=== PATIENT | male | born 1975 | race Caucasian/White ===

== ENCOUNTER 2018-05-25 20:36 | Emergency (ER) | payer SELFPAY ==
[~2018-05-25] VITALS: Ht 177.8 cm; Wt 99.8 kg
[~2018-05-25 20:36] MED LIST: BENADRYL25 M1 PO; IBUPROFEN200 MG PO; THORAZINE25 MG PO; WELLBUTRIN SR150 MG
[2018-05-25 21:00] VITALS: BP 166/98
[2018-05-25] MEDS ORDERED: ACETAMINOPHEN 325 MG TAB PO ONE (21:00)
== END 2018-05-25 21:04 | disposition home or self-care (01) ==
LOC: ER 20:36
DX: R05 Cough (principal); R50.9 Fever, unspecified; J20.9 Acute bronchitis, unspecified; F20.9 Schizophrenia, unspecified; F17.210 Nicotine dependence, cigarettes, uncomplicated
CPT/HCPCS: 93005; 99283

== ENCOUNTER 2018-07-20 16:15 | Emergency (ER) | payer SELFPAY ==
[~2018-07-20] VITALS: Ht 177.8 cm; Wt 99.8 kg
[2018-07-20] MEDS ORDERED: TETANUS/DIPHTHERIA TOX ADULT 0.5 ML SYR IM ONE (16:45)
[2018-07-20] MEDS ORDERED: CLINDAMYCIN PHOS 600 MG/ 4 ML VIAL IM ONE (16:45)
--- NOTE | 2018-07-20 17:25 | Diagnostic Imaging Report ---
LEFT ELBOW X-RAY - 3 VIEWS HISTORY: \S\pain r/o foreign body \[id number] \[id number] \S\Y COMPARISON: None available. FINDINGS: Bones: No acute displaced fracture. Osseous alignment is within normal limits. Joints: The joint spaces are well-maintained. Soft tissues: The soft tissues appear unremarkable. IMPRESSION: No acute radiographic abnormality. No radiopaque foreign bodies overlying the left elbow. Signed by: Dr. Paz Figueroa M.D. on 07/20/2018 5:22 PM
[2018-07-20 18:07] VITALS: BP 142/90
== END 2018-07-20 18:09 | disposition home or self-care (01) ==
LOC: ER 16:15
DX: M25.522 Pain in left elbow (principal); L03.114 Cellulitis of left upper limb; I10 Essential (primary) hypertension; F20.9 Schizophrenia, unspecified; F17.210 Nicotine dependence, cigarettes, uncomplicated
CPT/HCPCS: 90471; 90714; 99283

== ENCOUNTER 2018-09-15 19:04 | Emergency (ER) | payer SELFPAY ==
[~2018-09-15] VITALS: Ht 177.8 cm; Wt 95.3 kg
--- NOTE | 2018-09-15 22:00 | Diagnostic Imaging Report ---
EXAM: HAND 3+ VIEWS RIGHT, AP, lateral and oblique INDICATION: Pain right hand for 2 days, football injury. COMPARISON: None FINDINGS: BONES: There is a 4 mm density at the ventral aspect of the fourth digit at the level of the middle interphalangeal joint. JOINTS: No malalignment. SOFT TISSUES: Possible soft tissue swelling of the fourth digit. IMPRESSION: 4 mm density at the palmar aspect of the fourth digit at the level of the middle interphalangeal joint could represent a small avulsed fragment, likely from the base of the middle phalanx. Please correlate with patient's site of pain. Signed by: Dr. Eladia Craig M.D. on 09/15/2018 9:57 PM
== END 2018-09-15 22:41 | disposition home or self-care (01) ==
LOC: ER 19:04
DX: S60.221A Contusion of right hand, initial encounter (principal); Y93.61 Activity, american tackle football; Y92.007 Garden or yard of unspecified non-institutional (private) residence as the place of occurrence of the external cause; F20.9 Schizophrenia, unspecified; F17.210 Nicotine dependence, cigarettes, uncomplicated
CPT/HCPCS: 99283

== ENCOUNTER 2020-01-05 09:59 | Emergency (ER) | payer SELFPAY ==
[~2020-01-05] VITALS: Ht 177.8 cm; Wt 95.3 kg
[2020-01-05] MEDS ORDERED: SODIUM CHLORIDE 0.9% 1000ML 1,000 ML IV STA (10:02)
[2020-01-05] MEDS ORDERED: DIAZEPAM INJ 5 MG/ML 2 ML IV ONE (10:15)
[2020-01-05 10:31] LABS: BASOPHILS # (AUTO) 0.1 (0.0-0.1); EOSINOPHILS # (AUTO) 0.5 (0.0-0.4); EOSINOPHILS % 6.6 % (0.0-6.0); HEMATOCRIT 39.7 % (38.2-49.6); HEMOGLOBIN 13.3 g/dL (14.0-18.0); LYMPHOCYTES # (AUTO) 1.7 (1.0-3.2); LYMPHOCYTES % 23.5 % (18.0-39.1); MEAN CORPUSCULAR HGB CONC 33.5 g/dL (31-35); MEAN CORPUSCULAR VOLUME 89.6 fL (81-99); MONOCYTES # (AUTO) 0.7 (0.2-0.8); MONOCYTES % 9.5 % (4.4-11.3); NEUTROPHILS # (AUTO) 4.2 (2.1-6.9); NEUTROPHILS % 59.1 % (38.7-80.0); PLATELET COUNT 211 x10e3/uL (140-360); RED BLOOD COUNT 4.43 x10e6/uL (4.3-5.7); RED CELL DISTRIBUTION WIDTH 12.5 % (11.7-14.4)
[2020-01-05 10:50] LABS: ALANINE AMINOTRANSFERASE 21 IU/L (0-55); ALBUMIN 3.4 g/dL (3.5-5.0); ALBUMIN/GLOBULIN RATIO 1.4 (0.8-2.0); ALKALINE PHOSPHATASE 75 IU/L (40-150); ANION GAP 12.9 mmol/L (8-16); BLOOD UREA NITROGEN 10 mg/dL (7-26); BUN/CREATININE RATIO 14 (6-25); CALCIUM 8.9 mg/dL (8.4-10.2); CARBON DIOXIDE 26 mmol/L (22-29); CHLORIDE 104 mmol/L (98-107); CREATINE KINASE 137 IU/L (30-200); EST GLOMERULAR FILTRATION RATE > 60 ML/MIN (60-); GLUCOSE 106 mg/dL (74-118); LIPASE 40 U/L (8-78); POTASSIUM 3.9 mmol/L (3.5-5.1); SODIUM 139 mmol/L (136-145)
[2020-01-05 10:52] LABS: AMPHETAMINES SCREEN,URINE POSITIVE (NEGATIVE)
[2020-01-05 10:53] LABS: BENZODIAZEPINES SCREEN,URINE NEGATIVE (NEGATIVE); PHENCYCLIDINE SCREEN,URINE NEGATIVE (NEGATIVE)
== END 2020-01-05 11:14 | disposition home or self-care (01) ==
LOC: ER 09:59
DX: R10.11 Right upper quadrant pain (principal); F10.10 Alcohol abuse, uncomplicated; F15.10 Other stimulant abuse, uncomplicated; F20.9 Schizophrenia, unspecified
CPT/HCPCS: 36415; 80053; 80307; 80320; 82550; 82553; 83690; 84484; 85025; 93005; 99284; J7030

== ENCOUNTER → 2022-08-29 | Emergency (ER) | payer SELFPAY | END | disposition left against medical advice (07) | LOC: ER 23:15 | DX: R52 Pain, unspecified (principal) ==

== ENCOUNTER 2023-01-26 00:19 | Emergency (ER) | payer OTHER ==
[~2023-01-26] VITALS: Ht 175.3 cm; Wt 95.3 kg
[2023-01-26] MEDS ORDERED: SODIUM CHLORIDE 0.9% 1000ML 1,000 ML IV STA (00:31)
[2023-01-26] MEDS ORDERED: ONDANSETRON HCL INJ 2MG/ML 2ML 2 MG/ML VIAL IV ONE (00:45)
[2023-01-26] MEDS ORDERED: KETOROLAC TROMETHAMINE 30 MG/ML VIAL IV ONE (00:45)
[2023-01-26] MEDS ORDERED: FAMOTIDINE 20 MG/2 ML VIAL IV ONE ×2 (00:45→01:10)
[2023-01-26] MEDS ORDERED: KETOROLAC TROMETHAMINE 30 MG/ML VIAL ONE (01:10)
[2023-01-26] MEDS ORDERED: SODIUM CHLORIDE 0.9% 1000ML 1,000 ML ONE (01:10)
[2023-01-26] MEDS ORDERED: ONDANSETRON HCL INJ 2MG/ML 2ML 2 MG/ML VIAL ONE (01:13)
[2023-01-26] MEDS ORDERED: CLONIDINE HCL 0.2 MG TAB PO ONE (01:15)
[2023-01-26] MEDS ORDERED: IBUPROFEN200 MG PO (01:20)
[2023-01-26] MEDS ORDERED: ACETAMINOPHEN500 MG PO (01:20)
[2023-01-26] MEDS ORDERED: CLONIDINE HCL 0.1 MG TAB ONE (01:21)
[2023-01-26 01:45] VITALS: BP 155/90
== END 2023-01-26 01:45 | disposition home or self-care (01) ==
LOC: FSED 00:28
DX: S20.214A Contusion of middle front wall of thorax, initial encounter (principal); G89.11 Acute pain due to trauma; R07.9 Chest pain, unspecified; F11.10 Opioid abuse, uncomplicated; F14.10 Cocaine abuse, uncomplicated; F15.10 Other stimulant abuse, uncomplicated; I10 Essential (primary) hypertension; F31.9 Bipolar disorder, unspecified; F20.9 Schizophrenia, unspecified; Z79.899 Other long term (current) drug therapy; Y04.0XXA Assault by unarmed brawl or fight, initial encounter
CPT/HCPCS: 71046; 80053; 80307; 82553; 84484; 85025; 93005; 96374; 96375; 96376; 99284; J1885; J2405; J7030